=== PATIENT | male | born 1955 | race Caucasian/White ===

== ENCOUNTER → 2018-11-29 07:11 | Outpatient (CLI) | payer MEDICAID ==
[~2018-11-29] VITALS: Ht 172.7 cm; Wt 79.1 kg
--- NOTE | ~2018-11-29 | HEMODYNAMI ---
PATIENT:PRERNA EVERETT MEDICAL RECORD: [id number] : 57 LOCATION:[facility] ADMISSION DATE: 11/29/18 Generatedon:11/29/20189:41 Patient name: PRERNA EVERETT Patient #: [id number] SSN: : [id number] Date of study: 11/29/2018 Page: Of Hemodynamic Procedure Report Patient Data Patient Demographics Procedure consent was obtained First Name: PRERNA Gender: Male Last Name: MARGUERITE : 1955 [facility] Initial: MAXIMINO Age: 63 year(s) Patient #: [id number] Race: Unknown Additional ID: [id number] Contact details [address]: [address] [place] [address] State: [place] City: [place] Zip code: [address] Admission Admission Data Admission Date: 11/29/2018 Admission Time: 7:11 Weight (lbs.): 174.17 Weight (kg.): 79 Lab Results Lab Result Date: 11/29/2018 Lab Result Time: 0:00 Biochemistry Name Units Result Min Max BUN mg/dl 8 --(*---)-- 7 18 Creatinine mg/dl 0.7 --(*---)-- 0.6 1.3 CBC Name Units Result Min Max Hemoglobin g/dl 15.3 --(-*--)-- 13.5 17.5 Procedure Procedure Types Cath Procedure Diagnostic Procedure C Coronaries only Aortic Root Angiography Peripheral Cath Diagnostic Procedure Kitchen Runner Peripheral Procedures Renal Arteriogram Procedure Description Procedure Date Procedure Date: 11/29/2018 Procedure Start Time: 9:21 Procedure End Time: 9:38 Procedure Staff Name Function Jason Christian MD Performing Physician Wes Benjamin RT Monitor Anaid Gomez RN Nurse Argentina Madison RT Scrub Procedure Data Cath Procedure Fluoroscopy Diagnostic fluoroscopy Total fluoroscopy Time: 3.8 time: 3.8 min min Diagnostic fluoroscopy Total fluoroscopy dose: 389 dose: 389 mGy mGy Contrast Material Contrast Material Type Amount (ml) Isovue 300 99 Entry Location Entry Primary Successful Side Size Upsize Upsize Entry Closure Succes sful Closure Location (Fr) 1 (Fr) 2 (Fr) Remarks Device Remarks Femoral Right 5 Fr Exoseal artery Estimated blood loss: 10 ml Diagnostic catheters Device Type Used For End Catheter Placement MULTIPACK JL 4.0 5Fr Procedure catheter MULTIPACK 3DRC 5Fr Procedure catheter MULTIPACK Pigtail 5 Fr Procedure catheter Procedure Complications No complications Procedure Medications Medication Administration Route Dosage Oxygen etCO2 Nasal cannula 2 l/min Lidocaine 2% added to field 20 Heparin Flush Bag added to field 2 bags (1000units/500ml NS) 0.9% NaCl I.V. 100 ml/hr Versed I.V. 2 mg Fentanyl I.V. 100 mcg Versed I.V. 1 mg Fentanyl I.V. 50 mcg Hemodynamics Rest HGB: 15.3 (g/dl) Heart Rate: 67 (bpm) Snapshots Pre Cath Intra NCS Post Cath Vital Signs Time Heart Resp SPO2 etCO2 NIBP (mmHg) Rhythm Pain Sedation Rate (ipm) (%) (mmHg) Status Level (bpm) 9:11:14 63 17 94 17.9 148/88(121) NSR 0 (11) 10(A) , No pain 9:15:35 67 15 93 0 134/82(117) NSR 0 (11) 10(A) , No pain 9:19:55 72 15 95 20.9 132/82(117) NSR 0 (11) 10(A) , No pain 9:24:13 67 15 94 0 139/83(120) NSR 0 (11) 9(A) , No pain 9:29:24 72 14 95 0 136/75(99) NSR 0 (11) 9(A) , No pain 9:33:40 67 15 94 0 139/79(108) NSR 0 (11) 9(A) , No pain 9:38:00 69 13 94 0 139/81(105) NSR 0 (11) 10(A) , No pain Medications Time Medication Route Dose Verified Delivered Reason Notes Effe ctiveness by by 9:13:51 Oxygen etCO2 2 Jason Buffie used for Nasal l/min Gino Gomez offensive coordinator cannula 9:14:05 Heparin Flush added 2 Jason Buffie used for Bag to bags Gino Gomez offensive coordinator (1000units/500ml field NS) 9:14:17 0.9% NaCl I.V. 100 Jason Buffie Per ml/hr Gino Gomez RN physician 9:14:58 Lidocaine 2% added 20ml Jason Jason for local to vial Gino Christian MD anesthetic field 9:18:41 Versed I.V. 2 mg Jason Buffie for Gino Gomez RN sedation 9:18:47 Fentanyl I.V. 100 Jason Buffie for mcg Gino Gomez RN sedation 9:24:25 Versed I.V. 1 mg Jason Buffie for Gino Gomez RN sedation 9:24:31 Fentanyl I.V. 50 Jason Buffie for mcg Gino Gomez RN sedation Procedure Log Time Note 8:47:23 Anaid Gomez RN sent for patient. Start room use. 8:47:24 Time tracking: Regular hours (M-F 7:00 - 5:00) 8:47:29 Plan of Care:Hemodynamics will remain stable., Cardiac rhythm will remain stable., Comfort level will be maintained., Respiratory function will remain adequate., Patient/ family verbilizes understanding of procedure., Procedure tolerated without complication., Recovers from procedure without complications.. 9:04:05 Patient received from Pre/Post Procedure Room to [facility] 3 Alert and oriented. Tansferred to table in Supine position. 9:04:06 Warm blankets applied, and karen hugger turned on for patient comfort. 9:04:06 Correct patient and procedure confirmed by team. 9:04:07 Signed procedure consent form obtained from patient. 9:04:08 ECG and BP/O2 sat monitors applied to patient. 9:04:09 Full Disclosure recording started 9:09:53 Vital chart was started 9:13:27 Baseline sample Acquired. 9:13:32 Rhythm: sinus rhythm 9:13:51 Oxygen 2 l/min etCO2 Nasal cannula was administered by Anaid Gomez RN; used for procedure; 9:13:51 H&P Date Dictated: 11/23/2018 Within 30 days and on chart., H&P Addendum completed by physician on day of procedure. (MUST COMPLETE FOR ALL OUTPATIENTS). 9:13:52 Pre-procedure instructions explained to patient. 9:13:53 Pre-op teaching completed and patient verbalized understanding. 9:13:55 Family in patients room. 9:13:56 Patient NPO since Midnight. 9:14:00 Is the patient allergic to Iodine/contrast media? Yes. 9:14:01 Was the patient premedicated? Yes 9:14:04 Is patient on blood thinner?No 9:14:05 Heparin Flush Bag (1000units/500ml NS) 2 bags added to field was administered by Anaid Gomez RN; used for procedure; 9:14:11 Patient diabetic? No. 9:14:15 Previous problem with sedation/anesthesia? No ? 9:14:16 Snore? Yes 9:14:17 0.9% NaCl 100 ml/hr I.V. was administered by Anaid Gomez RN; Per physician; 9:14:17 Sleep apnea? No 9:14:17 Deviated septum? No 9:14:18 Opens mouth fully? Yes 9:14:19 Sticks out tongue? Yes 9:14:22 Airway obstruction? Yes COPD 9:14:27 Dentures? Yes IN 9:14:36 Pre procedure: right dorsailis pedis pulse 1+ Palpable, but thready & weak; easily obliterated 9:14:39 Patient pain scale 0/10 ?. 9:14:43 IV patent on arrival in left forearm with 0.9% NaCl at O. 9:14:45 Lab results completed and on chart. 9:14:54 Right groin area was prepped with chlora-prep and draped in sterile fashion 9:14:58 Lidocaine 2% 20ml vial added to field was administered by Jason Christian MD; for local anesthetic; 9:15:06 Alarms reviewed by R. N. 9:15:06 Sharps counted by scrub and verified by R.N. 9:15:11 Use device set Femoral Dx 9:15:13 Tegaderm 4 x 4 ([id number]) opened to sterile field. 9:15:14 ACIST Manifold (03103) opened to sterile field. 9:15:15 ACIST Hand Control (75109) opened to sterile field. 9:15:17 ACIST Syringe (93587) opened to sterile field. 9:15:17 Bag Decanter () opened to sterile field. 9:15:18 Medline Cath Pack ([id number]) opened to sterile field. 9:15:18 DIAGNOSTIC WIRE .035 260cm J wire (955658) opened to sterile field. 9:15:21 SHEATH 5FR Ruth (AMH901) opened to sterile field. 9:15:22 DIAGNOSTIC Multipack 5Fr catheter set ([id number]) opened to sterile field. 9:16:42 --------ALL STOP TIME OUT------ 9:16:43 Final Timeout: patient, procedure, and site verified with staff and physician. All members of the team are in agreement. 9:16:45 Right groin site verified by team. 9:16:49 Maximum allowable Isovue 300 dose 300ml. Physician notified. (300ml for normal creatinines. For patients with creatinine of 1.7 or higher multiply weight(kg) x 5 divided by creatinine.) 9:16:54 Fire Safety Assessment: A--An alcohol-based skin anteseptic being used preoperatively., C--Open oxygen or nitrous oxide is being used., D--An ESU, laser, or fiber-optic light is being used. 9:16:59 Physical assessment completed. ASA score P 2 - A patient with mild systemic disease as per Jason Christian MD. 9:17:02 Sedation plan: IV Moderate Sedation Medication:Versed, Fentanyl 9:18:41 Versed 2 mg I.V. was administered by Anaid Gomez RN; for sedation; 9:18:47 Fentanyl 100 mcg I.V. was administered by Anaid Gomez RN; for sedation; 9::43 Procedure started. 9:21:46 Local anesthetic to right femoral artery with Lidocaine 2% by Jason Christian MD.INITIAL ACCESS ONLY 9:22:26 Patient Weight : 174.17 lbs 9::53 Lab Result : BUN 8 mg/dl 9::53 Lab Result : Hemoglobin 15.3 g/dl 9::53 Lab Result : Creatinine 0.7 mg/dl 9:23:02 A 5 Fr sheath was inserted into the Right Femoral artery 9:23:13 A MULTIPACK JL 4.0 5Fr catheter was advanced over the wire and used for Procedure. 9:24:10 LCA angiography performed. 9:24:25 Versed 1 mg I.V. was administered by Anaid Gomez RN; for sedation; 9:24:31 Fentanyl 50 mcg I.V. was administered by Anaid Gomez RN; for sedation; 9:25:24 Catheter exchanged over wire. 9:25:43 A MULTIPACK 3DRC 5Fr catheter was advanced over the wire and used for Procedure. 9:27:45 RCA angiography performed. 9:28:33 Right renal angiography performed. 9:28:35 Left renal angiography performed. 9::47 Catheter exchanged over wire. 9:29:08 A MULTIPACK Pigtail 5 Fr catheter was advanced over the wire and used for Procedure. 9:30:06 Unable to cross valve. 9:31:28 Aortic Root visualized 9:31:32 Injector settings: Ml/sec: 15, Volume: 30, 9:34:45 Catheter removed. 9:34:47 EXOSEAL 5Fr (EX500) opened to sterile field. 9:34:58 Sheath removed intact; hemostasis achieved with Exoseal to the Right Femoral artery. 9:35:01 Procedure ended.(Physican Out) 9:35:14 Fluoroscopy time 03.80 minutes. 9:35:24 Fluoroscopy dose: 389 mGy 9:35:24 Flurop Dose total: 389 9:35:29 Contrast amount:Isovue 300 99ml. 9:35:31 Sharps counted by scrub and verified by R.N. 9:35:32 Insertion/operative site no bleeding no hematoma. 9:35:35 Post-op/insertion site Right Femoral artery dressed using a 4 x 4 and Tegaderm. 9:35:36 Post Procedure Pulses reassessed and unchanged 9:35:39 Post-procedure physical assessment completed. ASA score P 2 - A patient with mild systemic disease as per Jason Christian MD. 9:35:42 Post procedure rhythm: unchanged. 9:35:44 Estimated blood loss: 10 ml 9:35:46 Post procedure instruction explained to patient.Patient verbalizes understanding. 9:35:46 Patient needs reinforcement of post procedure teaching. 9:35:51 Procedure and supply charges have been captured, reviewed, submitted and are correct. 9:35:53 Procedure Complication : No complications 9:38:08 Vital chart was stopped 9:38:08 See physician's report for complete and final results. 9:38:10 Report given to Pre/Post Procedure Room. 9:38:19 Patient transfered to Pre/Post Procedure Room with Stretcher. 9:38:22 Procedure ended. 9:38:22 Full Disclosure recording stopped 9:38:40 Procedure type changed to Cath procedure, Diagnostic procedure, LHC, Coronaries only, Aortic Root Angiography, Peripheral Cath Diagnostic Procedure, Kitchen Runner Peripheral Procedures, Renal Arteriogram 9:40:56 End room use (Document Last) Device Usage Item Name Manufacture Quantity Catalog Hospital Part Current Minimal L ot# / Number Charge Number Stock Stock Serial# Code Tegaderm 4 3M 1 1626W [id number] 487393 5 x 4 (1626W) ACIST Acist 1 38686 290446 256216 355350 5 Manifold Medical (36567) Systems Inc ACIST Hand Acist 1 10758 908357 175908 997127 5 Control Medical (46277) Systems Inc ACIST Acist 1 89501 439697 072564 631400 20 Syringe Medical (62776) Systems Inc Bag Microtek 1 2001S 555814 75326 852163 5 Decanter Medical Inc. () Medline Medline 1 [id number] 319090 24123 864172 5 Cath Pack ([id number]) DIAGNOSTIC St Itz 1 649344 210660 385123 399151 30 WIRE .035 260cm J wire (303581) SHEATH 5FR Terumo 1 [id number] 490030 807512 642668 5 Ruth (AJH799) DIAGNOSTIC Cardinal 1 [id number] 044881 31863 543811 30 Multipack Health 5Fr catheter set ([id number]) MULTIPACK Cardinal 1 426294 5 JL 4.0 5Fr Health catheter MULTIPACK Cardinal 1 699025 5 3DRC 5Fr Health catheter MULTIPACK Cardinal 1 130312 5 Pigtail 5 Health Fr catheter EXOSEAL 5Fr Cardinal 1 EX500 047114 356690 182515 10 (EX500) Health Signature Audit [place] Stage Time Signature Unsigned Intra-Procedure 11/29/2018 Wes Benjamin 9:41:38 AM RT(R) Signatures Monitor : Wes Benjamin RT Signature : Date : Time : [place] [address]
[~2018-11-29 07:11] MED LIST: ALBUTEROL SULF8.5 GM INH; BISOPROLOL-HCTZ1 TA5 PO; CATAPRES TTS-10.1 MG TD; COZAAR100 MG PO; FLOMAX0.4 MG PO; HYDRALAZINE HCL10 MG PO; MORPHINE SULFAT15 M4 PO; NORVASC5 MG PO; OMEPRAZOLE40 MG PO; PERCOCET 10-321 EAC1 PO; SOMA350 MG PO; SPIRIVA18 MCG INH; SYMBICORT 16010.2 GM INH; ZIAC 5-6.25 MG1 TAB PO; ZOFRAN8 MG PO
[2018-11-29 07:42] VITALS: BP 128/78; Ht 172.7 cm; Wt 79.1 kg
[2018-11-29 08:36] LABS: BASOPHILS 0 % (0-2); EOSINOPHILS 0 % (0-7); HEMATOCRIT 43.8 % (42.0-54.0); HEMOGLOBIN 15.3 g/dL (13.5-17.5); IMMATURE GRANULOCYTES 0.3 % (0-5); LYMPHOCYTES 14.2 % (15-50); MCH 29.9 pg (26.0-34.0); MCHC 34.9 g/dL (31.0-37.0); MCV 85.5 fL (80.0-100.0); MEAN PLATELET VOLUME 9.4 fL (7.4-10.4); MONOCYTES 2.6 % (2-11); NEUTROPHILS 82.9 % (40-80); PLATELET COUNT 274 10x3/uL (130-400); RBC 5.12 10x6/uL (4.20-6.10); RDW 17.7 % (11.5-14.5); WBC 5.7 10x3/uL (4.8-10.8)
[2018-11-29 08:52] LABS: CALCIUM 8.6 mg/dL (8.5-10.1); CARBON DIOXIDE 23.9 mmol/L (21.0-32.0); CREATININE - SERUM 0.7 mg/dL (0.6-1.3); GLUCOSE 126 mg/dL (74-106); UREA NITROGEN 8 mg/dL (7-18); eGFR NON AFRICAN AMERICAN > 90 mL/min (90-120)
[2018-11-29 08:58] LABS: CALC OSMOLALITY 251 mosm/kg (275-300); CHLORIDE - SERUM 91 mmol/L (98-107); SODIUM 125 mmol/L (136-145)
--- NOTE | 2018-11-29 09:50 | NUR ---
PT RECEIVED VIA STRETCHER FROM INFORMATICIST FOR RECOVERY. PT DROWSY BUT VERBALLY AROUSABLE. DR DOMINGO IN AND SPOKE WITH PT AND FAMILY REGARDING PROCEDURE RESULTS AND PLAN OF CARE. 5FR EXOCELE TO R GROIN, DRESSING CDI NO BLEEDING OR HEMATOMA NOTED. R LEG PINK AND WARM, PEDAL PULSES PALAPBLE. HR NSR, RATE 64, BP 126/81, O2 SAT 94, PLACED ON 2L/NC. PT AND FAMILY INSTRUCTED TO KEEP HEAD FLAT AND R LEG STRAIGHT, ALL VERBALIZED UNDERSTANDING. IV PATENT INFUSING VIA ORDERS. CALL LIGHT IN REACH. PT DENIES PAIN OR DISCOMFORT.
--- NOTE | 2018-11-29 10:16 | NUR ---
PT RESTING COMFORTABLY. TOLERATING ICE CHIPS W/O NAUSEA. R GROIN SOFT, DRESSING REMAINS CDI NO BLEEDING OR HEMATOMA NOTED. R LEG WARM/PINK, PEDAL PULSES PALAPBLE. PT DENIES PAIN OR NEEDS AT THIS TIME. CALL LIGHT IN REACH, FAMILY AT BEDSIDE.
--- NOTE | 2018-11-29 10:32 | NUR ---
ASSISTED PT W URINAL, VOIDED 400 CC CLEAR YELLOW URINE. R GROIN DRESSING CDI, NO BLEEDING OR HEMATOMA NOTED. R LEG WARM/PINK AND PEDAL PULSES PALPABLE. PT DENIES PAIN OR ADDITIONAL NEEDS AT THIS TIME. CALL LIGHT IN REACH
--- NOTE | 2018-11-29 10:45 | NUR ---
R GROIN DRESSING REMAINS CDI NO BLEEDING OR HEMATOMA NOTED. HOB ELEVATED SLIGHTLY. COFFEE AND SANDWICH GIVEN PER REQUEST. CALL LIGHT IN REACH, FAMILY AT BEDSIDE.
--- NOTE | 2018-11-29 11:17 | NUR ---
PT DOING WELL, GROIN REMAINS SOFT, DRESSING IS CDI NO BLEEDING OR HEMATOMA NOTED. TOLERATED FOOD AND COFFE W/O NAUSEA. PT DENIES PAIN OR ADD'L NEEDS. CALL LIGHT IN REACH
--- NOTE | 2018-11-29 11:38 | NUR ---
R GROIN SOFT, DRESSING CDI NO BLEEDING OR SWELLING NOTED. PT WAITING ON ECHO TO BE DONE BEFORE DISCHARGE.
--- NOTE | 2018-11-29 11:46 | NUR ---
DISCHARGE TEACHING COMPLETED W PT AND FAMILY, ALL VERBALIZED UNDERSTANDING. MEDICATION CHANGES REVIEWED. GROIN REMAINS SOFT, NO BLEEDING OR HEMATOMA NOTED. PT WAITING ON ECHO BEFORE DISCHARGE.
--- NOTE | 2018-11-29 12:00 | NUR ---
HARNESS INSPECTOR IN ROOM TO PERFORM ECHO ORDERED.
--- NOTE | 2018-11-29 12:20 | NUR ---
ECHO COMPLETED. IV REMOVED W CATH INTACT. PT UP TO DRESS FOR DISCHARGE.
--- NOTE | 2018-11-29 12:43 | NUR ---
PT AMBULATED TO RESTROOM THEN DISCHARGED VIA WC TO PRIVATE VEHICLE PER SEJAL ADAN.
== END | disposition home or self-care (01) ==
LOC: D.CATH 07:11
PROVIDERS: ATTEND Internal Medicine Cardiovascular Disease
DX: I25.119 Atherosclerotic heart disease of native coronary artery with unspecified angina pectoris (principal); I15.0 Renovascular hypertension; Q25.49 Other congenital malformations of aorta; Z01.812 Encounter for preprocedural laboratory examination

== ENCOUNTER 2018-12-28 11:17 | Outpatient (CLI) | payer MEDICAID ==
[~2018-12-28] VITALS: Ht 172.7 cm; Wt 77.7 kg
--- NOTE | ~2018-12-28 | HEMODYNAMI ---
PATIENT:PRERNA EVERETT MEDICAL RECORD: [id number] : 57 LOCATION:[facility] ADMISSION DATE: 12/28/18 Generatedon:12/28/201813:42 Patient name: PRERNA EVERETT Patient #: [id number] SSN: : 1955 Date of study: 12/28/2018 Page: Of Hemodynamic Procedure Report Patient Data Patient Demographics Procedure consent was obtained First Name: PRERNA Gender: Male Last Name: MARGUERITE : 1955 [facility] Initial: MAXIMINO Age: 63 year(s) Patient #: [id number] Race: Unknown Additional ID: [id number] Contact details [address]: [address] [place] [address] State: [place] City: [place] Zip code: [address] Admission Admission Data Admission Date: 12/28/2018 Admission Time: 11:17 Procedure Procedure Types Cath Procedure Diagnostic Procedure FFR/IVUS FFR Initial Sedation Charges Moderate Sedation up to 15 minutes Procedure Description Procedure Date Procedure Date: 12/28/2018 Procedure Start Time: 13:13 Procedure End Time: 13:40 Procedure Staff Name Function Jason Christian MD Performing Physician Nori Dewey RT Monitor Loulou Elizabeth RT Scrub Kelly Kelly RN Nurse Procedure Data Cath Procedure Fluoroscopy Diagnostic fluoroscopy Total fluoroscopy Time: 8.6 time: 8.6 min min Diagnostic fluoroscopy Total fluoroscopy dose: dose: 1046 mGy 1046 mGy Contrast Material Contrast Material Type Amount (ml) Isovue 300 67 Entry Location Entry Primary Successful Side Size Upsize Upsize Entry Closure Succes sful Closure Location (Fr) 1 (Fr) 2 (Fr) Remarks Device Remarks Femoral Right 6 Fr 6 Fr Exoseal artery Short Long Estimated blood loss: 5 ml Procedure Complications No complications Procedure Medications Medication Administration Route Dosage 0.9% NaCl I.V. 100 ml/hr Oxygen etCO2 Nasal cannula 2 l/min Lidocaine 2% added to field 20 Heparin Flush Bag added to field 2 bags (1000units/500ml NS) Versed I.V. 2 mg Fentanyl I.V. 50 mcg Versed I.V. 2 mg Fentanyl I.V. 50 mcg Versed I.V. 1 mg Heparin Bolus I.V. 7800 units Hemodynamics Rest Heart Rate: 79 (bpm) Snapshots Pre Cath Intra NCS Post Cath Vital Signs Time Heart Resp SPO2 etCO2 NIBP (mmHg) Rhythm Pain Sedation Rate (ipm) (%) (mmHg) Status Level (bpm) 13:04:11 83 10 100 23.8 157/86(113) NSR 0 (11) 10(A) , No pain 13:08:30 81 14 98 29.8 132/78(96) NSR 0 (11) 10(A) , No pain 13:12:40 80 16 97 0.7 131/77(96) NSR 0 (11) 10(A) , No pain 13:17:39 80 18 98 0 Measuring NSR 0 (11) 10(A) , No pain 13:17:46 79 18 98 0 131/79(98) NSR 0 (11) 10(A) , No pain 13:21:55 78 17 97 0 135/80(96) NSR 0 (11) 9(A) , No pain 13:26:08 77 15 97 0 128/77(91) NSR 0 (11) 9(A) , No pain 13:30:19 77 12 98 11.9 132/74(97) NSR 0 (11) 9(A) , No pain 13:34:31 78 14 98 15.6 142/75(107) NSR 0 (11) 9(A) , No pain 13:38:45 76 13 98 14.1 134/76(96) NSR 0 (11) 10(A) , No pain Medications Time Medication Route Dose Verified Delivered Reason Notes Effectiveness by by 13:04:33 0.9% NaCl I.V. 100 Jason Kelly used for ml/hr Gino Kelly customer service receptionist 13:04:39 Oxygen etCO2 2 Jason Kelly used for Nasal l/min Gino Kelly procedure cannula RN 13:04:44 Lidocaine 2% added 20ml Jason Jason for local to vial Gino Christian MD anesthetic field 13:04:50 Heparin Flush added 2 Jason Kelly used for Bag to bags Gino Kelly procedure (1000units/500ml field RN NS) 13:08:27 Versed I.V. 2 mg Jason Kelly for sedation Gino Kelly RN 13:08:40 Fentanyl I.V. 50 Jason Kelly for sedation mcg Gino Kelly RN 13:13:49 Versed I.V. 2 mg Jason Kelly for sedation Gino Kelly RN 13:13:57 Fentanyl I.V. 50 Jason Kelly for sedation mcg Gino Kelly RN 13:18:06 Versed I.V. 1 mg Jason Kelly for sedation Gino Kelly RN 13:31:17 Heparin Bolus I.V. 7800 Jason Kelly for verif ied units Gino Kelly anticoagulation with Dr. SEJAL Christian Procedure Log Time Note 12:40:46 Kelly Kelly RN sent for patient. Start room use. 12:53:54 Time tracking: Regular hours (M-F 7:00 - 5:00) 12:53:58 Plan of Care:Hemodynamics will remain stable., Cardiac rhythm will remain stable., Comfort level will be maintained., Respiratory function will remain adequate., Patient/ family verbilizes understanding of procedure., Procedure tolerated without complication., Recovers from procedure without complications.. 12:54:01 Patient received from Pre/Post Procedure Room to [facility] 2 Alert and oriented. Tansferred to table in Supine position. 12:54:02 Warm blankets applied, and akren hugger turned on for patient comfort. 12:54:03 Correct patient and procedure confirmed by team. 12:54:04 Signed procedure consent form obtained from patient. 12:54:05 ECG and BP/O2 sat monitors applied to patient. 13:03:01 Vital chart was started 13:04:33 0.9% NaCl 100 ml/hr I.V. was administered by Kelly Kelly RN; used for procedure; 13:04:39 Oxygen 2 l/min etCO2 Nasal cannula was administered by Kelly Kelly RN; used for procedure; 13:04:44 Lidocaine 2% 20ml vial added to field was administered by Jason Christian MD; for local anesthetic; 13:04:50 Heparin Flush Bag (1000units/500ml NS) 2 bags added to field was administered by Kelly Kelly RN; used for procedure; 13:05:13 Baseline sample Acquired. 13:05:19 Rhythm: sinus rhythm 13:05:20 Full Disclosure recording started 13:05:24 H&P Date Dictated: 12/28/2018 Within 30 days and on chart., H&P Addendum completed by physician on day of procedure. (MUST COMPLETE FOR ALL OUTPATIENTS). 13:05:25 Pre-procedure instructions explained to patient. 13:05:25 Pre-op teaching completed and patient verbalized understanding. 13:05:27 Family in waiting room. 13:05:28 Patient NPO since Midnight. 13:05:30 Is the patient allergic to Iodine/contrast media? Yes. 13:05:31 Was the patient premedicated? Yes 13:05:32 Is patient on blood thinner?No 13:06:00 Patient diabetic? No. 13:06:05 Previous problem with sedation/anesthesia? No ? 13:06:07 Snore? Yes 13:06:07 Sleep apnea? Yes 13:06:08 Deviated septum? N/A 13:06:14 Opens mouth fully? Yes 13:06:15 Sticks out tongue? Yes 13:06:22 Airway obstruction? Yes copd 13:06:27 Dentures? Yes in tight 13:06:35 Pre procedure: right dorsailis pedis pulse 1+ Palpable, but thready & weak; easily obliterated 13:06:36 Pre procedure: left dorsailis pedis pulse 1+ Palpable, but thready & weak; easily obliterated 13:06:40 Patient pain scale 0/10 ?. 13:06:51 IV patent on arrival in left forearm with 0.9% NaCl at KVO. 13:06:53 Lab results completed and on chart. 13:07:06 Right groin area was prepped with chlora-prep and draped in sterile fashion 13:07:07 Alarms reviewed by R. N. 13:07:08 Sharps counted by scrub and verified by R.N. 13:07:09 Physician arrived 13:07:09 --------ALL STOP TIME OUT------ 13:07:10 Final Timeout: patient, procedure, and site verified with staff and physician. All members of the team are in agreement. 13:07:12 Right groin site verified by team. 13:07:16 Maximum allowable Isovue 300 dose 300ml. Physician notified. (300ml for normal creatinines. For patients with creatinine of 1.7 or higher multiply weight(kg) x 5 divided by creatinine.) 13:07:23 Fire Safety Assessment: A--An alcohol-based skin anteseptic being used preoperatively., C--Open oxygen or nitrous oxide is being used., D--An ESU, laser, or fiber-optic light is being used., E--There are other possible contributors. 13:07:27 Physical assessment completed. ASA score P 2 - A patient with mild systemic disease as per Jason Christian MD. 13:07:30 Sedation plan: IV Moderate Sedation Medication:Versed, Fentanyl 13:07:46 Use device set CATH PACK 13:07:48 ACIST Syringe (29674) opened to sterile field. 13:07:48 ACIST Hand Control (66721) opened to sterile field. 13:07:49 ACIST Manifold (86301) opened to sterile field. 13:07:49 Medline Cath Pack ([id number]) opened to sterile field. 13:07:49 Bag Decanter (2002S) opened to sterile field. 13:07:50 DIAGNOSTIC WIRE .035 260cm J wire (324298) opened to sterile field. 13:08:16 SHEATH 6FR Hackberry (LRT412) opened to sterile field. 13:08:16 INFLATOR Merit BasixCompak (OR6514) opened to sterile field. 13:08:17 BMW 300cm [place] 2 J wire ([id number]) opened to sterile field. 13:08:27 Versed 2 mg I.V. was administered by Kelly Kelly RN; for sedation; 13:08:40 Fentanyl 50 mcg I.V. was administered by Kelly Kelly RN; for sedation; 13:13:49 Versed 2 mg I.V. was administered by Kelly Kelly RN; for sedation; 13:13:51 Procedure started. 13:13:57 Fentanyl 50 mcg I.V. was administered by Kelly Kelly RN; for sedation; 13:13:57 Local anesthetic to right femoral artery with Lidocaine 2% by Jason Christian MD.INITIAL ACCESS ONLY 13:14:20 A 6 Fr Short sheath was inserted into the Right Femoral artery 13:15:12 TUBING High Pressure Extension Tubing (Gino) ([id number]) opened to sterile field. 13:15:27 6 Fr ar 1 guide catheter was inserted over the wire 13:16:06 GUIDE 6FR AR 1.0 catheter ([id number]) opened to sterile field. 13:18:06 Versed 1 mg I.V. was administered by Kelly Kelly RN; for sedation; 13:22:29 Guide Catheter removed. unable to get back-up support 13:22:46 SHEATH 6FR Destination (RSR01) opened to sterile field. 13:23:08 Sheath upsized to a 6 Fr Long. 13:23:17 6 Fr ar 1 guide catheter was inserted over the wire 13:29:21 [employer] Verrata Plus pressure wire ([id number]) opened to sterile field. 13:29:56 RCA angiography performed. 13:29:59 Injector settings: Ml/sec: 3, Volume: 6, 13:30:17 FFR/IFR wire advanced. 13:31:17 Heparin Bolus 7800 units I.V. was administered by Kelly Kelly RN; for anticoagulation; verified with Dr. Christian 13:37:45 rca lesion measured at 0.99\ with IFR 13:37:59 IFR wire removed 13:38:13 Guide catheter removed. 13:38:21 EXOSEAL 6Fr (EX600) opened to sterile field. 13:38:32 Sheath removed intact; hemostasis achieved with Exoseal to the Right Femoral artery. 13:38:35 Procedure ended.(Physican Out) 13:39:34 Fluoroscopy time 08.60 minutes. 13:39:39 Fluoroscopy dose: 1046 mGy 13:39:39 Flurop Dose total: 1046 13:39:49 Contrast amount:Isovue 300 67ml. 13:39:59 Sharps counted by scrub and verified by R.N. 13:40:01 Insertion/operative site no bleeding no hematoma. 13:40:04 Post-op/insertion site Right Femoral artery dressed using a 4 x 4 and Tegaderm. 13:40:07 Post procedure rhythm: unchanged. 13:40:10 Estimated blood loss: 5 ml 13:40:12 Post procedure instruction explained to patient.Patient verbalizes understanding. 13:40:12 Patient needs reinforcement of post procedure teaching. 13:40:29 Procedure type changed to Cath procedure, Diagnostic procedure, FFR/IVUS, FFR Initial, Sedation Charges, Moderate Sedation up to 15 minutes 13:40:33 Procedure and supply charges have been captured, reviewed, submitted and are correct. 13:40:38 Procedure Complication : No complications 13:40:41 Vital chart was stopped 13:40:41 See physician's report for complete and final results. 13:40:50 Report given to Pre/Post Procedure Room. 13:40:53 Patient transfered to Pre/Post Procedure Room with Stretcher. 13:40:56 Procedure ended. 13:40:56 Full Disclosure recording stopped 13:40:59 End room use (Document Last) Device Usage Item Name Manufacture Quantity Catalog Hospital Part Current Minima l Lot# / Number Charge Number Stock Stock Serial# Code ACIST Acist 1 13564 212751 240211 681866 20 Syringe Medical (13621) Systems Inc ACIST Hand Acist 1 54620 474543 268055 896076 5 Control Medical (52346) Systems Inc ACIST Acist 1 93050 463563 087816 493166 5 Manifold Medical (65914) Systems Inc Medline Medline 1 [id number] 446649 56516 896472 5 Cath Pack ([id number]) Bag Microtek 1 2001S 956854 99319 206871 5 Decanter Medical Inc. () DIAGNOSTIC St Itz 1 372444 084757 627864 707661 30 WIRE .035 260cm J wire (157975) SHEATH 6FR Terumo 1 HOJ789 250585 508700 552488 40 Hackberry (PPH261) INFLATOR Merit 1 GM7127 297330 009927 239746 15 Merit Medical BasixCompak (CA3061) BMW 300cm [place]azar 1 [id number] 850019 584570 437268 5 [place] 2 Vascular J wire ([id number]) TUBING High Merit 1 [id number] 461682 68394 830417 10 Pressure Medical Extension Tubing (Christian) (FR1189K) GUIDE 6FR Medtronic 1 [id number] 409588 09843 076680 1 AR 1.0 catheter (IB4QZ34) SHEATH 6FR Terumo 1 RSR01 230924 52075 581930 5 Destination (RSR01) [place] Saxapahaw 1 44639X 730885 [id number] 304720 5 Verrata Plus pressure wire (20959E) EXOSEAL 6Fr Cardinal 1 EX600 263522 272893 477314 10 (EX600) Health Signature Audit [place] Stage Time Signature Unsigned Intra-Procedure 12/28/2018 Nori Dewey 1:42:24 PM RT(R) Signatures Monitor : Nori Dewey RT Signature : Date : Time : [id number] [place] [address]
[2018-12-28 12:13] VITALS: BP 139/76; Ht 172.7 cm; Wt 77.7 kg
[2018-12-28 12:35] LABS: CALC OSMOLALITY 249 mosm/kg (275-300); CALCIUM 8.6 mg/dL (8.5-10.1); CARBON DIOXIDE 23.1 mmol/L (21.0-32.0); CHLORIDE - SERUM 90 mmol/L (98-107); CREATININE - SERUM 0.5 mg/dL (0.6-1.3); GLUCOSE 152 mg/dL (74-106); POTASSIUM - SERUM 3.9 mmol/L (3.5-5.1); SODIUM 123 mmol/L (136-145); UREA NITROGEN 11 mg/dL (7-18); eGFR NON AFRICAN AMERICAN > 90 mL/min (90-120)
[2018-12-28 13:27] LABS: BASOPHILS 0 % (0-2); EOSINOPHILS 0.2 % (0-7); HEMATOCRIT 42.1 % (42.0-54.0); HEMOGLOBIN 15.3 g/dL (13.5-17.5); IMMATURE GRANULOCYTES 0.2 % (0-5); LYMPHOCYTES 12.2 % (15-50); MCH 30.9 pg (26.0-34.0); MCHC 36.3 g/dL (31.0-37.0); MCV 85.1 fL (80.0-100.0); MEAN PLATELET VOLUME 9.8 fL (7.4-10.4); MONOCYTES 2.6 % (2-11); NEUTROPHILS 84.8 % (40-80); PLATELET COUNT 238 10x3/uL (130-400); RBC 4.95 10x6/uL (4.20-6.10); RDW 16.6 % (11.5-14.5); WBC 6.1 10x3/uL (4.8-10.8)
--- NOTE | 2018-12-28 14:10 | NUR ---
2L NC, NO RESP DISTRESS. RIGHT GROIN 6F EXOSEAL CDI, NO BLEEDING OR HEMATOMA NOTED. NO C/O PAIN OR NAUSEA. VSS. FAMILY AT BEDSIDE, CALL LIGHT WITHIN REACH.
--- NOTE | 2018-12-28 14:40 | NUR ---
RESTING QUIETLY WITH EYES CLOSED. RIGHT GROIN 6F EXOSEAL CDI, NO BLEEDING OR HEMATOMA NOTED. 2L NC WITH NO RESP DISTRESS. VSS. WILL CONTINUE TO MONITOR.
--- NOTE | 2018-12-28 14:55 | NUR ---
CONTINUES TO REST COMFORTABLY WITH NO C/O. RIGHT GROIN 6F EXOSEAL CDI, NO BLEEDING OR HEMATOMA NOTED. DENIES ANY NEEDS. VSS. CALL LIGHT WITHIN REACH.
--- NOTE | 2018-12-28 15:25 | NUR ---
VOIDED 400CC INTO URINAL. RIGHT GROIN 6F EXOSEAL CDI, NO BLEEDING OR HEMATOMA NOTED. DENIES ANY NEEDS. VSS. WILL CONTINUE TO MONITOR.
--- NOTE | 2018-12-28 15:55 | NUR ---
CONTINUES TO REST WITH NO C/O. RIGHT GROIN 6F EXOSEAL CDI, NO BLEEDING NOTED. 2L NC WITH NO RESP DISTRESS. VSS. CALL LIGHT WITHIN REACH.
--- NOTE | 2018-12-28 16:40 | NUR ---
HOB ELEVATED 30 DEGREES. RIGHT GROIN 6F EXOSEAL CDI, NO BLEEDING OR HEMATOMA NOTED. SIPPING ON DRINK AND EATING SANDWICH WITH NO C/O NAUSEA. VSS. WILL CONTINUE TO MONITOR CLOSELY.
--- NOTE | 2018-12-28 17:25 | NUR ---
LEFT PIV D/C'D WITH CATHETER INTACT, BAND AID TO SITE. UP TO BEDSIDE TO GET DRESSED. AMBULATED TO RESTROOM.
--- NOTE | 2018-12-28 17:35 | NUR ---
DISCHARGE INSTRUCTIONS GIVEN TO PT AND FAMILY, VERBALIZED UNDERSTANDING.
--- NOTE | 2018-12-28 17:50 | NUR ---
TAKEN OUT VIA WHEELCHAIR BY CATH LIGHTNING ROD ERECTOR. LEFT FACILITY WITH FAMILY AND ALL PERSONAL BELONGINGS.
== END 2018-12-28 17:50 | disposition home or self-care (01) ==
LOC: D.CATH 11:17
PROVIDERS: ATTEND Internal Medicine Cardiovascular Disease
DX: I25.119 Atherosclerotic heart disease of native coronary artery with unspecified angina pectoris (principal); Z01.812 Encounter for preprocedural laboratory examination